=== PATIENT | female | born 1985 | race Asian ===

== ENCOUNTER 2018-05-31 19:52 | Observation (INO) | payer MEDICAID ==
[~2018-05-31] VITALS: Ht 170.2 cm; Wt 112.5 kg
[2018-05-31] MEDS ORDERED: PNV1TABL50 MT (20:27)
[2018-05-31 20:43] LABS: CLARITY URINE TURBID (CLEAR); COLOR URINE YELLOW (YELLOW); KETONES URINE 3+ (NEGATIVE); LEUKOCYTE ESTERASE URINE 1+ (NEGATIVE); NITRITE URINE NEGATIVE (NEGATIVE); OCCULT BLOOD URINE NEGATIVE (NEGATIVE); PROTEIN URINE 1+ (NEGATIVE); SPECIFIC GRAVITY URINE 1.039 (1.005-1.030); UROBILINOGEN URINE 0.2 E.U./dL (0.2-1.0)
[2018-05-31] MEDS ORDERED: ACETAMINOPHEN 500MG TABLET PO NR (20:45)
[2018-05-31] MEDS ORDERED: CEFAZOLIN 2000MG PREMIX 50 ML IV NR (22:00)
[2018-05-31] MEDS ORDERED: SODIUM CHLORIDE 0.9% 1,000 ML IV SCH (22:00)
== END 2018-05-31 23:25 | disposition home or self-care (01) ==
LOC: L&D 19:52
PROVIDERS: ADMIT Specialist; ATTEND Specialist
DX: O26.893 Other specified pregnancy related conditions, third trimester (principal); R10.30 Lower abdominal pain, unspecified; Z3A.37 37 weeks gestation of pregnancy
CPT/HCPCS: 76805; 76818; 81003; 96365; 99281; G0378; J0690; 96360; J7030